=== PATIENT | male | born 1970 | race Hispanic/Latino ===

== ENCOUNTER 2019-11-23 11:49 | Emergency (ER) | payer OTHER ==
[2019-11-23] MEDS ORDERED: Proparacaine 0.5% Opth 15 ML BOT ONE (11:58)
[2019-11-23] MEDS ORDERED: Fluorescein Opthalmic Strip ONE (11:59)
[2019-11-23] MEDS ORDERED: Gentamicin Ophth Soln 0.3% 5 ml Bottle ONE (13:02)
== END 2019-11-23 14:00 | disposition home or self-care (01) ==
LOC: ERS 11:49
DX: S05.8X2A Other injuries of left eye and orbit, initial encounter (principal); W45.0XXA Nail entering through skin, initial encounter
CPT/HCPCS: 99283

== ENCOUNTER 2022-11-21 11:34 | Inpatient (IN) | payer SELFPAY ==
[~2022-11-21 11:34] MED LIST: Iopamidol-370 76% 500 ML MDV (1 ML CHARGE) ONE
[2022-11-21 12:51] LABS: ALT (SGPT) 28 U/L (8-55); AST (SGOT) 21 U/L (5-34); Albumin 3.9 g/dL (3.5-5.0); Alkaline Phosphatase 209 U/L (40-110); Anion Gap 15 mmol/L (10-20); BUN (Urea Nitrogen) 13 mg/dL (8.4-25.7); Bilirubin, Total 1.4 mg/dL (0.2-1.2); Calc. Creatinine Clearance 0 mL/min (70-130); Calcium 9.9 mg/dL (7.8-10.44); Carbon Dioxide 25 mmol/L (22-29); Chloride 96 mmol/L (98-107); Estimated GFR 105; Globulin 3.8 g/dL (2.4-3.5); Glucose 250 mg/dL (70-105); Potassium 3.9 mmol/L (3.5-5.1); Protein, Total 7.7 g/dL (6.0-8.3); Sodium 132 mmol/L (136-145)
[2022-11-21] MEDS ORDERED: Ampicillin 2 GM VIAL ONE (13:17)
[2022-11-21] MEDS ORDERED: Morphine 4 MG/ML VIAL ONE (13:17)
[2022-11-21] MEDS ORDERED: Ketorolac Tromethamine 30 MG/ML VIAL ONE ×2 (13:17→16:06)
[2022-11-21 13:19] LABS: #Basophils 0.1 thou/uL (0.0-0.2); #Eosinphils 0.2 thou/uL (0.0-0.7); #Monocytes 1.1 thou/uL (0.11-0.59); #Neutrophils 11.8 thou/uL (1.40-6.50); %Basophils 0.3 % (0.0-1.0); %Eosinophils 1.2 % (0.0-10.0); %Monocytes 7.6 % (0.0-10.0); %Neutrophils 80.6 % (42.0-75.0); Hematocrit 36.3 % (42.0-52.0); Hemoglobin 12.4 g/dL (14.0-18.0); Mean Corpuscular HGB CONC 34.2 g/dL (32.0-36.0); Mean Corpuscular Hemoglobin 28.5 pg (27.0-31.0); Mean Corpuscular Volume 83.4 fl (78.0-98.0); Mean Platelet Volume 11.3 fL (7.4-10.4); Platelet Count 274 10x3/uL (130-400); RBC Distribution Width 11.8 % (11.5-14.5); Red Blood Cell (RBC) Count 4.35 mill/uL (4.70-6.10); White Blood Cell (WBC) Count 14.7 10x3/uL (4.8-10.8)
[2022-11-21] MEDS ORDERED: Ondansetron ODT 4 MG TAB PO PRN (14:18)
[2022-11-21] MEDS ORDERED: Senokot S 8.6-50 MG TAB PO PRN (14:18)
[2022-11-21] MEDS ORDERED: Acetaminophen 650 MG Suppository PR PRN (14:18)
[2022-11-21] MEDS ORDERED: Ondansetron PF 4 MG/2 ML Vial IVP PRN (14:18)
[2022-11-21] MEDS ORDERED: Dextrose 5% in Water 1,000 ML IV PRN (14:21)
[2022-11-21] MEDS ORDERED: HumaLOG 300 UNITS/3 ML VIAL SC PRN (14:21)
[2022-11-21] MEDS ORDERED: Glucagon 1 MG/ML KIT IM PRN (14:21)
[2022-11-21] MEDS ORDERED: Dextrose 50% Abboject 50 ML SYRINGE SLOW IVP PRN (14:21)
[2022-11-21 14:24] LABS: SARS-CoV-2 NAA Rapid Test Not Detected (NotDetected)
[2022-11-21] MEDS ORDERED: Oxymetazoline HCl 0.05% (30 ML BOT) ONE (14:26)
[2022-11-21] MEDS ORDERED: Ketamine 50 MG/ML (10ML VIAL) ONE (14:46)
[2022-11-21] MEDS ORDERED: Midazolam HCl 2 mg/2 ml Vial ONE (14:46)
[2022-11-21] MEDS ORDERED: Lidocaine 4% Topical Sol 50 ML BOT ONE (14:47)
[2022-11-21 14:48] LABS: Hemoglobin A1c 8.7 % (4.0-6.0)
[2022-11-21] MEDS ORDERED: Lidocaine 2% 6 ML (Jelly) SYR ONE (14:48)
[2022-11-21] MEDS ORDERED: EPINEPHrine 1 MG/ML AMP ONE (15:26)
[2022-11-21] MEDS ORDERED: Lidocaine 1% (PF) 30 ML VIAL ONE (15:26)
[2022-11-21] MEDS ORDERED: Chlorhexidine Gluconate 15 ML UDCUP SSP ONE ×2 (15:26→16:53)
[2022-11-21] MEDS ORDERED: fentaNYL 50 mcg/mL 1 mL Vial ONE (15:28)
[2022-11-21] MEDS ORDERED: fentaNYL PF 100 MCG/2 ML SYRINGE ONE (15:29)
[2022-11-21] MEDS ORDERED: Ampicillin/Sulbactam 3 GM in Sodium Chloride 0.9% 100 ML IVPB SCH (16:00)
[2022-11-21] MEDS ORDERED: PHENYLEPHRINE-NS 100 MCG/ML 10 ML SYRINGE ONE (16:06)
[2022-11-21] MEDS ORDERED: PROPOFOL 200 MG/20 ML VIAL ONE (16:06)
[2022-11-21] MEDS ORDERED: NEOSTIGMINE 3 MG/3 ML SYR 3 MG/3 ML SYRINGE ONE (16:06)
[2022-11-21] MEDS ORDERED: Ondansetron PF 4 MG/2 ML Vial ONE (16:06)
[2022-11-21] MEDS ORDERED: Glycopyrrolate 0.2 MG/ML 5 ML SYRINGE ONE (16:06)
[2022-11-21] MEDS ORDERED: Dexamethasone 20 MG/5 ML VIAL ONE (16:06)
[2022-11-21] MEDS ORDERED: Rocuronium Bromide 10 MG/ML (10ML VIAL) ONE (16:06)
[2022-11-21] MEDS ORDERED: Ondansetron HCl/PF 4 MG/2 ML Vial IVP PRN (17:40)
[2022-11-21] MEDS ORDERED: Morphine Sulfate 2 MG/ML SYRINGE SLOW IVP PRN (17:40)
[2022-11-21] MEDS ORDERED: HYDROmorphone 2 MG/ML VIAL SLOW IVP PRN (17:40)
[2022-11-21] MEDS ORDERED: Promethazine HCl 25 MG/ML VIAL IM PRN (17:40)
[2022-11-21] MEDS ORDERED: PACU-Morphine 4MG/ML VIAL SLOW IVP PRN (17:40)
[2022-11-21] MEDS: Lactated Ringer's 1,000 ML IV SCH (18:43)
[2022-11-21] MEDS: Famotidine/PF 20 mg/2ml Vial SLOW IVP SCH (20:21)
[2022-11-21] MEDS: Chlorhexidine Gluconate 15 ML UDCUP SSP SCH (20:21)
[2022-11-21] MEDS: Morphine 2 MG/ML VIAL SLOW IVP PRN (20:21)
[2022-11-21] MEDS: Ampicillin/Sulbactam 3 GM in Sodium Chloride 0.9% 100 ML IVPB SCH (20:21)
[2022-11-21] MEDS: Acetaminophen 325 MG TAB PO PRN (20:22)
[2022-11-21 20:34] VITALS: BMI 28.3
[2022-11-21] MEDS: Famotidine 20 MG TAB PO SCH (23:21)
[2022-11-22] MEDS: Lactated Ringer's 1,000 ML IV SCH ×4 (01:43→18:26)
[2022-11-22] MEDS: Morphine 2 MG/ML VIAL SLOW IVP PRN ×3 (01:43→21:59)
[2022-11-22] MEDS: Ampicillin/Sulbactam 3 GM in Sodium Chloride 0.9% 100 ML IVPB SCH ×4 (01:43→21:58)
[2022-11-22] MEDS: HumaLOG 300 UNITS/3 ML VIAL SC PRN ×3 (05:38→18:36)
[2022-11-22 06:18] LABS: Anion Gap 12 mmol/L (10-20); BUN (Urea Nitrogen) 16 mg/dL (8.4-25.7); Calc. Creatinine Clearance 104 mL/min (70-130); Calcium 9.6 mg/dL (7.8-10.44); Carbon Dioxide 25 mmol/L (22-29); Chloride 98 mmol/L (98-107); Estimated GFR 104; Glucose 287 mg/dL (70-105); Potassium 4.2 mmol/L (3.5-5.1); Sodium 131 mmol/L (136-145)
[2022-11-22 06:20] LABS: #Monocytes 0.8 thou/uL (0.11-0.59); #Neutrophils 15.3 thou/uL (1.40-6.50); %Basophils 0.2 % (0.0-1.0); %Lymphocytes 5.7 % (21.0-51.0); %Monocytes 4.9 % (0.0-10.0); %Neutrophils 88.3 % (42.0-75.0); Hematocrit 33.2 % (42.0-52.0); Hemoglobin 11.2 g/dL (14.0-18.0); Mean Corpuscular HGB CONC 33.7 g/dL (32.0-36.0); Mean Corpuscular Hemoglobin 28.3 pg (27.0-31.0); Mean Corpuscular Volume 83.8 fl (78.0-98.0); Mean Platelet Volume 11.2 fL (7.4-10.4); Platelet Count 301 10x3/uL (130-400); RBC Distribution Width 11.7 % (11.5-14.5); Red Blood Cell (RBC) Count 3.96 mill/uL (4.70-6.10); White Blood Cell (WBC) Count 17.3 10x3/uL (4.8-10.8)
[2022-11-22] MEDS: Chlorhexidine Gluconate 15 ML UDCUP SSP SCH ×3 (08:42→21:58)
[2022-11-22] MEDS: Famotidine 20 MG TAB PO SCH ×2 (08:43→22:14)
[2022-11-22] MEDS: Famotidine/PF 20 mg/2ml Vial SLOW IVP SCH ×2 (10:30→21:58)
[2022-11-22] MEDS: Acetaminophen 325 MG TAB PO PRN (21:58)
[2022-11-23] MEDS: Lactated Ringer's 1,000 ML IV SCH ×4 (02:57→22:32)
[2022-11-23] MEDS: Ampicillin/Sulbactam 3 GM in Sodium Chloride 0.9% 100 ML IVPB SCH ×4 (02:57→22:32)
[2022-11-23] MEDS: HumaLOG 300 UNITS/3 ML VIAL SC PRN ×3 (06:49→17:13)
[2022-11-23] MEDS: Famotidine/PF 20 mg/2ml Vial SLOW IVP SCH ×2 (08:20→22:38)
[2022-11-23] MEDS: Famotidine 20 MG TAB PO SCH ×2 (10:23→22:32)
[2022-11-23] MEDS: Chlorhexidine Gluconate 15 ML UDCUP SSP SCH ×3 (10:23→22:33)
[2022-11-23 17:32] LABS: Hemoglobin A1c 8.9 % (4.0-6.0)
[2022-11-24] MEDS: Ampicillin/Sulbactam 3 GM in Sodium Chloride 0.9% 100 ML IVPB SCH ×3 (02:58→13:38)
[2022-11-24] MEDS: Lactated Ringer's 1,000 ML IV SCH (06:32)
[2022-11-24 07:06] LABS: ALT (SGPT) 22 U/L (8-55); AST (SGOT) 15 U/L (5-34); Albumin 3.4 g/dL (3.5-5.0); Alkaline Phosphatase 156 U/L (40-110); Anion Gap 12 mmol/L (10-20); BUN (Urea Nitrogen) 6 mg/dL (8.4-25.7); Bilirubin, Total 0.4 mg/dL (0.2-1.2); Calc. Creatinine Clearance 119 mL/min (70-130); Calcium 9.5 mg/dL (7.8-10.44); Carbon Dioxide 27 mmol/L (22-29); Chloride 100 mmol/L (98-107); Estimated GFR 108; Globulin 3.4 g/dL (2.4-3.5); Glucose 212 mg/dL (70-105); Potassium 3.7 mmol/L (3.5-5.1); Protein, Total 6.8 g/dL (6.0-8.3); Sodium 135 mmol/L (136-145)
[2022-11-24 07:28] LABS: #Basophils 0.1 thou/uL (0.0-0.2); #Eosinphils 0.6 thou/uL (0.0-0.7); %Basophils 0.6 % (0.0-1.0); Hemoglobin 11.4 g/dL (14.0-18.0); RBC Distribution Width 11.7 % (11.5-14.5)
[2022-11-24 07:29] LABS: #Monocytes 0.9 thou/uL (0.11-0.59); #Neutrophils 7.2 thou/uL (1.40-6.50); %Eosinophils 4.9 % (0.0-10.0); %Lymphocytes 24.7 % (21.0-51.0); %Monocytes 7.3 % (0.0-10.0); Hematocrit 34.4 % (42.0-52.0); Mean Corpuscular HGB CONC 33.1 g/dL (32.0-36.0); Mean Corpuscular Hemoglobin 27.9 pg (27.0-31.0); Mean Corpuscular Volume 84.3 fl (78.0-98.0); Mean Platelet Volume 10.5 fL (7.4-10.4); Platelet Count 357 10x3/uL (130-400); Red Blood Cell (RBC) Count 4.08 mill/uL (4.70-6.10); White Blood Cell (WBC) Count 11.7 10x3/uL (4.8-10.8)
[2022-11-24] MEDS: Famotidine 20 MG TAB PO SCH (08:11)
[2022-11-24] MEDS: Chlorhexidine Gluconate 15 ML UDCUP SSP SCH (08:11)
[2022-11-24] MEDS: Famotidine/PF 20 mg/2ml Vial SLOW IVP SCH (08:12)
[2022-11-24 12:03] VITALS: BP 142/87; TEMP 97.7
[2022-11-24] MEDS: HumaLOG 300 UNITS/3 ML VIAL SC PRN (13:19)
== END 2022-11-24 14:00 | disposition home or self-care (01) | DRG 581 ==
LOC: ERS 11:34 → SDC 16:02 → SURG B 18:38 → OBSVTOIN 11-22 12:09
PROVIDERS: ADMIT Student in an Organized Health Care Education/Training Program; ATTEND Family Medicine
PROC: 0J910ZZ Drainage of Face Subcutaneous Tissue and Fascia, Open Approach (ICD-10-PCS; principal; 2022-11-21)
PROC: 0CDXXZ1 Extraction of Lower Tooth, Multiple, External Approach (ICD-10-PCS; 2022-11-21)
PROC: 0K9 Muscles, Drainage (ICD-10-PCS; 2022-11-21)
DX: L02.01 Cutaneous abscess of face (principal); E11.9 Type 2 diabetes mellitus without complications; Z98.890 Other specified postprocedural states; Z79.4 Long term (current) use of insulin; Z79.84 Long term (current) use of oral hypoglycemic drugs
CPT/HCPCS: 36415; 36416; 70492; 80048; 80053; 83036; 83605; 85025; 87040; 87070; 87205; 96365; 96366; 96375; 96376; G0378; J0171; J0290; J0295; J1100; J1815; J1885; J2001; J2250; J2270; J2272; J2405; J2704; J3010; J3490; J7120; Q9967; S0028